=== PATIENT | male | born 1990 | race Caucasian/White ===

== ENCOUNTER 2021-08-10 10:07 | Emergency (ER) | payer OTHER ==
[~2021-08-10] VITALS: Ht 175.3 cm; Wt 106.6 kg
[2021-08-10] MEDS ORDERED: DICYCLOMINE HCL 20 MG TAB PO ONE (11:30)
[2021-08-10] MEDS ORDERED: LIDOCAINE HCL 2% VISCOUS 15 ML UDCUP PO ONE (11:30)
[2021-08-10] MEDS ORDERED: FAMOTIDINE 20MG TAB PO ONE (11:30)
[2021-08-10] MEDS ORDERED: MAG/ALUM/SIMETH 30 ML UDCUP PO ONE (11:30)
[2021-08-10] MEDS ORDERED: PANTOPRAZOLE 40 MG TAB DR PO ONE (11:30)
[2021-08-10] MEDS ORDERED: PANT40TA PO (11:31)
[2021-08-10] MEDS ORDERED: ONDA4TAB10 PO (11:31)
[2021-08-10] MEDS ORDERED: DICY20TA2 PO (11:31)
[2021-08-10] MEDS ORDERED: METO-296 PO (11:31)
[2021-08-10 12:32] VITALS: BP 116/96
== END 2021-08-10 12:41 | disposition home or self-care (01) ==
LOC: EDH 10:07
DX: R10.13 Epigastric pain (principal); M54.6 Pain in thoracic spine; R07.89 Other chest pain; Z79.899 Other long term (current) drug therapy
CPT/HCPCS: 71045; 93005